=== PATIENT | male | born 1950 | race Caucasian/White ===

== ENCOUNTER 2018-08-14 09:39 | Emergency (ER) | payer MEDICARE ==
[~2018-08-14] VITALS: Ht 172.7 cm; Wt 80.4 kg
[2018-08-14 10:00] VITALS: BP 124/74
[2018-08-14] MEDS ORDERED: DIAZEPAM 5 MG TABLET ONE (10:42)
[2018-08-14] MEDS ORDERED: KETOROLAC 30 MG/1 ML ONE (10:43)
[2018-08-14] MEDS ORDERED: DIAZEPAM 5 MG TABLET PO ONE (11:00)
[2018-08-14] MEDS ORDERED: KETOROLAC 30 MG/1 ML IM ONE (11:00)
== END 2018-08-14 11:10 | disposition home or self-care (01) ==
LOC: ED 11:04
DX: S39.012A Strain of muscle, fascia and tendon of lower back, initial encounter (principal); M43.16 Spondylolisthesis, lumbar region; M51.36 Other intervertebral disc degeneration, lumbar region; M54.16 Radiculopathy, lumbar region; X58.XXXA Exposure to other specified factors, initial encounter; Y93.89 Activity, other specified; Y92.89 Other specified places as the place of occurrence of the external cause; Y99.8 Other external cause status; F17.200 Nicotine dependence, unspecified, uncomplicated
CPT/HCPCS: 72110; 96372; 99283; J1885

== ENCOUNTER 2019-07-12 14:51 | Emergency (ER) | payer MEDICARE ==
[~2019-07-12] VITALS: Ht 172.7 cm; Wt 79.4 kg
[2019-07-12 15:32] VITALS: BP 129/61
[2019-07-12] MEDS ORDERED: METHOCARBAMOL 750 MG TABLET ONE ×2 (16:29)
[2019-07-12] MEDS ORDERED: METHOCARBAMOL 750 MG TABLET PO ONE (16:30)
== END 2019-07-12 16:58 | disposition home or self-care (01) ==
LOC: ED 16:45
DX: M19.012 Primary osteoarthritis, left shoulder (principal); F17.210 Nicotine dependence, cigarettes, uncomplicated; W07.XXXA Fall from chair, initial encounter; Y93.89 Activity, other specified; Y92.59 Other trade areas as the place of occurrence of the external cause; Y99.8 Other external cause status
CPT/HCPCS: 29125; 99283